=== PATIENT | female | born 1955 | race Caucasian/White ===

== ENCOUNTER 2017-07-15 10:38 | Emergency (ER) | payer MEDICAID, OTHER ==
[~2017-07-15] VITALS: Ht 167.6 cm; Wt 67.0 kg
[~2017-07-15 10:38] MED LIST: ALPR0.5T99 PO; ASPI325T PO; FLAG500T PO; GABA300 PO; LISI40TA PO; MAGN400 PO; NICO21DI2 TD; NORC7.5T PO; PERC5TAB12 PO; POTA-243 PO; SIMV20TA PO; WALKER STANDARD; WARF5TAB PO; WARF7.5T4 PO
[2017-07-15 10:46] VITALS: BP 143/76; PULSE 96; RESP 18; O2SAT 99
[2017-07-15 10:55] VITALS: BP 143/76; PULSE 96; RESP 18; O2SAT 96
[2017-07-15] MEDS ORDERED: SODIUM CHLORIDE 0.9% FLUSH 10 ML FLUSH IVF PRN (11:00)
[2017-07-15 11:01] VITALS: TEMP 98.2
[2017-07-15 11:13] LABS: AUTOMATED NEUTROPHIL # 10.6 TH/MM3 (1.8-7.7); BASOPHIL % 0.2 % (0.0-2.0); EOSINOPHIL % 0.1 % (0.0-4.0); HEMATOCRIT 49.8 % (35.0-46.0); HEMOGLOBIN 16.1 GM/DL (11.6-15.3); LYMPH % 5.6 % (9.0-44.0); LYMPHOCYTE # 0.7 TH/MM3 (1.0-4.8); MEAN CELL VOLUME 94.2 FL (80.0-100.0); MEAN CORPUSCULAR HEMOGLOBIN 30.5 PG (27.0-34.0); MEAN CORPUSCULAR HGB CONC 32.4 % (32.0-36.0); MEAN PLATELET VOLUME 10.1 FL (7.0-11.0); MONO % 2.5 % (0.0-8.0); MONOCYTE # 0.3 TH/MM3 (0-0.9); NEUT % 91.6 % (16.0-70.0); PLATELET COUNT 122 TH/MM3 (150-450); RED BLOOD COUNT 5.29 MIL/MM3 (4.00-5.30); RED CELL DISTRIBUTION WIDTH 15.2 % (11.6-17.2); WHITE BLOOD COUNT 11.6 TH/MM3 (4.0-11.0)
[2017-07-15 11:27] LABS: INTERNATIONAL NORMALIZED RATIO 1.3 RATIO
[2017-07-15 11:29] LABS: ALBUMIN 4.1 GM/DL (3.4-5.0); ALT (GPT) 14 U/L (10-53); AST (GOT) 15 U/L (15-37); BICARBONATE 13.8 MEQ/L (21.0-32.0); BLOOD UREA NITROGEN 13 MG/DL (7-18); CALCIUM 9.1 MG/DL (8.5-10.1); CHLORIDE 106 MEQ/L (98-107); CREATININE 0.59 MG/DL (0.50-1.00); GLOMERULAR FILTRATION RATE 103 ML/MIN (>89); GLUCOSE,RANDOM 176 MG/DL (74-106); SODIUM (NA) 137 MEQ/L (136-145)
[2017-07-15 11:32] LABS: ALKALINE PHOSPHATASE 79 U/L (45-117); TOTAL BILIRUBIN ADULT 1.3 MG/DL (0.2-1.0); TOTAL PROTEIN 7.4 GM/DL (6.4-8.2)
[2017-07-15] MEDS ORDERED: AMBI5TAB PO (11:32)
[2017-07-15] MEDS ORDERED: LEXA20TA PO (11:32)
[2017-07-15] MEDS ORDERED: SIMV40TA PO (11:32)
[2017-07-15] MEDS ORDERED: WARF-21 PO (11:32)
[2017-07-15] MEDS ORDERED: MOBI7.5T PO (11:32)
[2017-07-15] MEDS ORDERED: ALPR.5 PO (11:32)
[2017-07-15] MEDS ORDERED: GABA100C4 PO (11:32)
[2017-07-15] MEDS ORDERED: BUPR100T4 PO (11:32)
[2017-07-15] MEDS ORDERED: GABA300C5 PO (11:32)
[2017-07-15] MEDS ORDERED: LISI-515 PO (11:32)
[2017-07-15] MEDS ORDERED: KLOR10TA PO (11:32)
--- NOTE | 2017-07-15 11:40 | RADRPT ---
EXAM DATE/TIME: 07/15/2017 11:10 [facility] COMPARISON: CT BRAIN W/O CONTRAST, July 01, 2015, 19:10. INDICATIONS : General weakness and no appetite for two days,fall RADIATION DOSE: 56.35 CTDIvol (mGy) MEDICAL HISTORY : Cardiovascular disease. Hypertension. SURGICAL HISTORY : Cholecystectomy. ENCOUNTER: Initial ACUITY: 2 days PAIN SCALE: 8/10 LOCATION: cranial TECHNIQUE: Multiple contiguous axial images were obtained of the head. Using automated exposure control and adj ustment of the mA and/or kV according to patient size, radiation dose was kept as low as reasonably a chievable to obtain optimal diagnostic quality images. DICOM format image data is available electro nically for review and comparison. FINDINGS: CEREBRUM: The ventricles are normal for age. No evidence of midline shift, mass lesion, hemorrhage or acute in farction. No extra-axial fluid collections are seen. POSTERIOR FOSSA: The cerebellum and brainstem are intact. The 4th ventricle is midline. The cerebellopontine angle i s unremarkable. EXTRACRANIAL: The visualized portion of the orbits is intact. A small air-fluid level is noted within the right max illary sinus. SKULL: The calvaria is intact. No evidence of skull fracture. CONCLUSION: 1. No acute intracranial abnormality. 2. Small air-fluid level within the right maxillary sinus. Javier Maya MD on July 15, 2017 at 11:37 Board Certified Radiologist. This report was verified electronically.
--- NOTE | 2017-07-15 12:15 | RADRPT ---
EXAM DATE/TIME: 07/15/2017 11:26 [facility] COMPARISON: No previous studies available for comparison. INDICATIONS : Trauma,fall. RADIATION DOSE: 36.81 CTDIvol (mGy) MEDICAL HISTORY : Hypertension. Cardiovascular disease SURGICAL HISTORY : Cholecystectomy. ENCOUNTER: Initial ACUITY: 1 day PAIN SCORE: 5/10 LOCATION: Bilateral face TECHNIQUE: Volumetric scanning of the facial bones was performed. Using automated exposure control and adjustme nt of the mA and/or kV according to patient size, radiation dose was kept as low as reasonably achiev able to obtain optimal diagnostic quality images. DICOM format image data is available electronicall y for review and comparison. FINDINGS: ORBITS: The orbital and infraorbital osseous structures are intact. The retroconal structures have a normal configuration. No radiopaque foreign bodies are seen. NASAL BONE: The nasal bone and maxillary spine are intact ZYGOMATIC ARCHES: Symmetric without evidence of fracture. SINUSES: The maxillary, ethmoid and frontal sinuses are intact. No air-fluid levels seen. NASAL CAVITY: The nasal septum is intact and midline. The lacrimal ducts are intact. SOFT TISSUES: No radiopaque foreign bodies seen. There is contusion and laceration with air in the soft tissues nikky und the mandible, worse on the left side anteriorly. INTRACRANIAL: No intracranial air seen. CRIBIFORM PLATE: Grossly intact. CONCLUSION: 1. No acute facial bone fracture. Mucosal thickening right maxillary sinus. There is air in the subcu taneous tissues of the mandible anteriorly, worse on the left side presumably from laceration and the re is also associated soft tissue swelling and some contusion. Chase Wilkins MD on July 15, 2017 at 12:09 Board Certified Radiologist. This report was verified electronically.
--- NOTE | 2017-07-15 12:36 | PD ---
HPI Chief Complaint: General Weakness Time Seen by Provider: 10:42 Travel History International Travel<30 days: No Contact w/Intl Traveler<30days: No Traveled to known affect area: No History of Present Illness HPI This is a 62-year-old who presents to the emergency department and had a fall this morning. She says her legs gave out. She says she's had weakness in her legs since 2003 and she hasn't been eating much this week because her roommate is getting on her nerves. She didn't pass out completely but her legs were weak and she fell and hit her face. She has some headache, mild, constant, with no numbness or weakness and no difficulty talking. She is on Coumadin. She was just recently hospitalized in the setting of altered mental status and was positive for benzodiazepines and opiates. PFSH Past Medical History Hx Anticoagulant Therapy: Yes Arthritis: Yes Asthma: No Autoimmune Disease: No Blood Disorders: No Anxiety: No Depression: No Heart Rhythm Problems: Yes (AFIB) Cancer: Yes Cardiovascular Problems: Yes High Cholesterol: Yes Chest Pain: No Congestive Heart Failure: No COPD: No Cerebrovascular Accident: No Diabetes: No Diminished Hearing: No Endocrine: No Gastrointestinal Disorders: Yes (GASTRIC CA) GERD: No Glaucoma: No Genitourinary: No Headaches: No Hepatitis: No Hiatal Hernia: No Hypertension: Yes Immune Disorder: No Implanted Vascular Access Dvce: Yes Kidney Stones: Yes (years ago last 1995) Musculoskeletal: Yes Neurologic: Yes (NEUROPATHY FEET) Psychiatric: No Reproductive: No Respiratory: No Migraines: No Myocardial Infarction: No Renal Failure: No Seizures: No Sickle Cell Disease: No Sleep Apnea: No Thyroid Disease: No Ulcer: No Tetanus Vaccination: Unknown Influenza Vaccination: Yes Menopausal: Yes : 0 Past Surgical History Abdominal Surgery: Yes AICD: No Appendectomy: No Arteriovenous Shunt: No Body Medical Devices: STENT RIGHT LEG, LEFT ANKLE HARDWARE Cardiac Surgery: No Cholecystectomy: Yes (1988) Ear Surgery: No Endocrine Surgery: No Eye Surgery: No Genitourinary Surgery: No Gynecologic Surgery: No Insulin Pump: No Joint Replacement: No Oral Surgery: No Pacemaker: No Thoracic Surgery: No Other Surgery: Yes (MULTIPLE FEM POP BILATERALLY;LAST SURGERY 2011) Social History Alcohol Use: No Tobacco Use: Yes Substance Use: No Allergies-Medications (Allergen,Severity, Reaction): Coded Allergies: acetaminophen (Unverified Allergy, Unknown, UPSET STOMACH, 07/15/17) propoxyphene (Unverified Allergy, Unknown, UPSET STOMACH, 07/15/17) *MDRO Multi-Drug Resistant Organism (Unverified Adverse Reaction, Unknown , 07/15/17) MRSA (foot wound) - 04/2010 MRSA Screen #1 Negative on 12/06/14 and MRSA Screen #2 negative on 12/08/2014. No need to isolate for history of MRSA prior to 12/08/2014 per Infection Prevention and Control Reported Meds & Prescriptions Reported Meds & Active Scripts Active Reported Klor-Con 10 (Potassium Chloride) 10 Meq Tab 10 Meq PO DAILY Lexapro (Escitalopram Oxalate) 20 Mg Tab 20 Mg PO DAILY Simvastatin 40 Mg Tab 40 Mg PO HS Mobic (Meloxicam) 7.5 Mg Tab 7.5 Mg PO BID Gabapentin 300 Mg Cap 300 Mg PO QID Warfarin 7.5 Mg Tab 7.5 Mg PO DAILY 5 TIMES A WEEK Lisinopril 20 Mg Tab 20 Mg PO DAILY Ambien (Zolpidem Tartrate) 5 Mg Tab 5 Mg PO HS PRN Gabapentin 100 Mg Cap 100 Mg PO TID PRN Xanax (Alprazolam) 0.5 Mg Tab 0.5 Mg PO BID PRN Bupropion HCl 100 Mg Tab 100 Mg PO DAILY Review of Systems Except as stated in HPI: all other systems reviewed are Neg Physical Exam Narrative GENERAL:Well appearing, no acute distress SKIN: Abrasion over the nasal bridge HEAD: Atraumatic. Normocephalic. EYES: Pupils equal and round. No injection or drainage. ENT: Moist mucous membranes NECK: Trachea midline. No cervical spine tenderness, full painless range of motion of the neck. CARDIOVASCULAR: Regular rate and rhythm. No murmur appreciated. RESPIRATORY: Clear to auscultation. Breath sounds equal bilaterally. GASTROINTESTINAL: Abdomen soft, non-tender, nondistended. MUSCULOSKELETAL: No obvious deformities. Both legs are cool and hairless. NEUROLOGICAL: Awake and alert. No obvious cranial nerve deficits. No dysarthria or aphasia. 5 out of 5 strength bilateral upper extremities. PSYCHIATRIC: Appropriate mood and affect; insight and judgment normal. Data Data Last Documented VS Vital Signs Date Time Temp Pulse Resp B/P (MAP) Pulse Ox O2 Delivery O2 Flow Rate FiO2 07/15/17 11:01 98.2 07/15/17 10:55 96 18 96 Room Air Orders Orders Electrocardiogram (07/15/17 10:51) Complete Blood Count With Diff (07/15/17 10:51) Comprehensive Metabolic Panel (07/15/17 10:51) Prothrombin Time / Inr (Pt) (07/15/17 10:51) Act Partial Throm Time (Ptt) (07/15/17 10:51) Ecg Monitoring (07/15/17 10:51) Bilateral Bp Monitoring (07/15/17 10:51) Iv Access Insert/Monitor (07/15/17 10:51) Oximetry (07/15/17 10:51) Oxygen Administration (07/15/17 10:51) Sodium Chloride 0.9% Flush (Ns Flush) (07/15/17 11:00) Ct Brain W/O Iv Contrast(Rout) (07/15/17 ) Ct Facial Bones W/O Iv Cont (07/15/17 ) Blood Gas Venous (Vbg) (07/15/17 11:40) Labs Laboratory Tests Test 07/15/17 11:00 07/15/17 12:10 White Blood Count 11.6 TH/MM3 Red Blood Count 5.29 MIL/MM3 Hemoglobin 16.1 GM/DL Hematocrit 49.8 % Mean Corpuscular Volume 94.2 FL Mean Corpuscular Hemoglobin 30.5 PG Mean Corpuscular Hemoglobin Concent 32.4 % Red Cell Distribution Width 15.2 % Platelet Count 122 TH/MM3 Mean Platelet Volume 10.1 FL Neutrophils (%) (Auto) 91.6 % Lymphocytes (%) (Auto) 5.6 % Monocytes (%) (Auto) 2.5 % Eosinophils (%) (Auto) 0.1 % Basophils (%) (Auto) 0.2 % Neutrophils # (Auto) 10.6 TH/MM3 Lymphocytes # (Auto) 0.7 TH/MM3 Monocytes # (Auto) 0.3 TH/MM3 Eosinophils # (Auto) 0.0 TH/MM3 Basophils # (Auto) 0.0 TH/MM3 CBC Comment DIFF FINAL Differential Comment Prothrombin Time 13.0 SEC Prothromb Time International Ratio 1.3 RATIO Activated Partial Thromboplast Time 21.9 SEC Blood Urea Nitrogen 13 MG/DL Creatinine 0.59 MG/DL Random Glucose 176 MG/DL Total Protein 7.4 GM/DL Albumin 4.1 GM/DL Calcium Level 9.1 MG/DL Alkaline Phosphatase 79 U/L Aspartate Amino Transf (AST/SGOT) 15 U/L Alanine Aminotransferase (ALT/SGPT) 14 U/L Total Bilirubin 1.3 MG/DL Sodium Level 137 MEQ/L Potassium Level 3.3 MEQ/L Chloride Level 106 MEQ/L Carbon Dioxide Level 13.8 MEQ/L Anion Gap 17 MEQ/L Estimat Glomerular Filtration Rate 103 ML/MIN Blood Gas Puncture Site INTRA-VENOUS Blood Gas Patient Temperature 98.6 Venous Blood pH 7.33 Venous Blood Partial Pressure CO2 37 mmHg Venous Blood Partial Pressure O2 34 mmHg Venous Blood HCO3 19 mmol/L Venous Blood Oxygen Saturation 61 % Venous Blood Oxygen Content 13.5 Vol % Venous Blood Base Excess -5.8 mmol/L Blood Gas Inspired Oxygen 21 % MDM Medical Decision Making Medical Screen Exam Complete: Yes Emergency Medical Condition: Yes Medical Record Reviewed: Yes (patient was admitted on July 04 and intubated in the setting of altered mental status. This was attributed to suspected polypharmacy with opiates and benzodiazepines) Interpretation(s) EKG: Normal sinus rhythm, no ST changes Mild leukocytosis Mild hypokalemia Bicarbonate is 14 with an anion gap of 17 Last [address] 07/15/17 0000 Signed Impressions: Service Date/Time: Saturday, July 15, 2017 11:10 - CONCLUSION: 1. No acute intracranial abnormality. 2. Small air-fluid level within the right maxillary sinus. Javier Maya MD Differential Diagnosis Electrolyte abnormality, dehydration, infection, intracranial hemorrhage Narrative Course This is a 62-year-old female who presents to the emergency department having had a fall earlier today hitting her head. She says she is on Coumadin. Her INR today is 1.3. Other labs were obtained which were reassuring. She does have a low bicarbonate and elevated anion gap which could reflect some dehydration or could reflect a recent seizure. Patient is back to baseline. I think she can be discharged home. My suspicion would be that her presentation today is also related to polypharmacy similar to her recent admission. She was asked to follow-up with her primary care physician. Diagnosis Primary Impression: Closed head injury Qualified Codes: S09.90XA - Unspecified injury of head, initial encounter Additional Impression: Subtherapeutic international normalized ratio (INR) Patient Instructions: General Instructions Additional Instructions: If you develop severe worsening headache, persistent vomiting, numbness, weakness, difficulty walking or difficulty talking return to the emergency department immediately. Follow-up with your primary care physician without fail. Med/Other Pt SpecificInfo: No Change to Meds Disposition: 01 DISCHARGE HOME Condition: Stable Makayla Velasco MD Jul 15, 2017 12:36
[2017-07-15] MEDS ORDERED: TETANUS/DIPHTHERIA TOXOID ADULT 0.5 ML VIAL IM ONE (12:45)
[2017-07-15] MEDS ORDERED: LIDOCAINE 2%/EPINEPHrine 1:100,000 20ML MDV NERV BLOCK ONE (12:45)
--- NOTE | 2017-07-15 13:06 | PD ---
Physical Exam Date Seen by Provider: Jul 15, 2017 Time Seen by Provider: 13:04 Narrative I was asked by Dr. Castaneda to see this patient for laceration to the chin. Laceration was repaired. See procedure note. Data Data Last Documented VS Vital Signs Date Time Temp Pulse Resp B/P (MAP) Pulse Ox O2 Delivery O2 Flow Rate FiO2 07/15/17 11:01 98.2 07/15/17 10:55 96 18 96 Room Air Orders Orders Electrocardiogram (07/15/17 10:51) Complete Blood Count With Diff (07/15/17 10:51) Comprehensive Metabolic Panel (07/15/17 10:51) Prothrombin Time / Inr (Pt) (07/15/17 10:51) Act Partial Throm Time (Ptt) (07/15/17 10:51) Ecg Monitoring (07/15/17 10:51) Bilateral Bp Monitoring (07/15/17 10:51) Iv Access Insert/Monitor (07/15/17 10:51) Oximetry (07/15/17 10:51) Oxygen Administration (07/15/17 10:51) Sodium Chloride 0.9% Flush (Ns Flush) (07/15/17 11:00) Ct Brain W/O Iv Contrast(Rout) (07/15/17 ) Ct Facial Bones W/O Iv Cont (07/15/17 ) Blood Gas Venous (Vbg) (07/15/17 11:40) Ed Discharge Order (07/15/17 12:36) Tetanus/Diphtheria Tox Adult (Tetanus/Di (07/15/17 12:45) Lidocai-Epi 2%-1:100,000 Inj (Xylocaine- (07/15/17 12:45) Labs Laboratory Tests Test 07/15/17 11:00 07/15/17 12:10 White Blood Count 11.6 TH/MM3 Red Blood Count 5.29 MIL/MM3 Hemoglobin 16.1 GM/DL Hematocrit 49.8 % Mean Corpuscular Volume 94.2 FL Mean Corpuscular Hemoglobin 30.5 PG Mean Corpuscular Hemoglobin Concent 32.4 % Red Cell Distribution Width 15.2 % Platelet Count 122 TH/MM3 Mean Platelet Volume 10.1 FL Neutrophils (%) (Auto) 91.6 % Lymphocytes (%) (Auto) 5.6 % Monocytes (%) (Auto) 2.5 % Eosinophils (%) (Auto) 0.1 % Basophils (%) (Auto) 0.2 % Neutrophils # (Auto) 10.6 TH/MM3 Lymphocytes # (Auto) 0.7 TH/MM3 Monocytes # (Auto) 0.3 TH/MM3 Eosinophils # (Auto) 0.0 TH/MM3 Basophils # (Auto) 0.0 TH/MM3 CBC Comment DIFF FINAL Differential Comment Prothrombin Time 13.0 SEC Prothromb Time International Ratio 1.3 RATIO Activated Partial Thromboplast Time 21.9 SEC Blood Urea Nitrogen 13 MG/DL Creatinine 0.59 MG/DL Random Glucose 176 MG/DL Total Protein 7.4 GM/DL Albumin 4.1 GM/DL Calcium Level 9.1 MG/DL Alkaline Phosphatase 79 U/L Aspartate Amino Transf (AST/SGOT) 15 U/L Alanine Aminotransferase (ALT/SGPT) 14 U/L Total Bilirubin 1.3 MG/DL Sodium Level 137 MEQ/L Potassium Level 3.3 MEQ/L Chloride Level 106 MEQ/L Carbon Dioxide Level 13.8 MEQ/L Anion Gap 17 MEQ/L Estimat Glomerular Filtration Rate 103 ML/MIN Blood Gas Puncture Site INTRA-VENOUS Blood Gas Patient Temperature 98.6 Venous Blood pH 7.33 Venous Blood Partial Pressure CO2 37 mmHg Venous Blood Partial Pressure O2 34 mmHg Venous Blood HCO3 19 mmol/L Venous Blood Oxygen Saturation 61 % Venous Blood Oxygen Content 13.5 Vol % Venous Blood Base Excess -5.8 mmol/L Blood Gas Inspired Oxygen 21 % MDM Medical Record Reviewed: Yes Supervised Visit with JULISA: Yes Narrative Course I was asked by Dr. Castaneda to see this patient for laceration to the chin. Laceration was repaired. See procedure note. Procedures Procedure Narrative LACERATION LOCATION: Middle anterior chin LENGTH: 3 cm NUMBER OF STITCHES/FANNY: 6 simple interrupted REPAIR: The area of the laceration was prepped with Betadine and sterilely draped. The laceration was infiltrated with 4 mL 2% lidocaine with epi. The wound was copiously irrigated and explored without evidence of foreign body, tendon injury or neurovascular injury. The wound was closed using 5-0 Prolene. This was a single layer repair. A sterile dressing was applied. The patient was advised to keep the dressing clean and dry. Patient tolerated the procedure well. Diagnosis Primary Impression: Closed head injury Qualified Codes: S09.90XA - Unspecified injury of head, initial encounter Additional Impression: Subtherapeutic international normalized ratio (INR) Patient Instructions: General Instructions Additional Instruction: If you develop severe worsening headache, persistent vomiting, numbness, weakness, difficulty walking or difficulty talking return to the emergency department immediately. Follow-up with your primary care physician without fail. Disposition: 01 DISCHARGE HOME Condition: Stable Davie Trevino Jul 15, 2017 13:06
--- NOTE | 2017-07-15 17:22 | EKG ---
Date Performed: 07/15/2017 Time Performed: 11:08:05 PTAGE: 62 years EKG: Sinus rhythm NORMAL ECG PREVIOUS TRACING : 07/03/2015 14.27 Compared to prior tracing no significant change DOCTOR: Jesús Shah Interpretating Date/Time 07/15/2017 17:21:51
== END 2017-07-15 13:52 | disposition home or self-care (01) ==
LOC: NEPD 10:38
DX: S01.81XA Laceration without foreign body of other part of head, initial encounter (principal); Z79.01 Long term (current) use of anticoagulants; Z23 Encounter for immunization; W19.XXXA Unspecified fall, initial encounter; I48.91 Unspecified atrial fibrillation; E78.00 Pure hypercholesterolemia, unspecified; I10 Essential (primary) hypertension
CPT/HCPCS: 12013; 70450; 70486; 80053; 82805; 85025; 85610; 85730; 90471; 90714; 93005